=== PATIENT | female | born 1985 | race Caucasian/White ===

== ENCOUNTER 2021-06-13 08:48 | Emergency (ER) | payer OTHER ==
[~2021-06-13] VITALS: Ht 157.5 cm; Wt 65.9 kg
[2021-06-13] MEDS ORDERED: IBUPROFEN 600 MG TABLET. PO ONE (11:30)
--- NOTE | 2021-06-13 11:41 | PHYS DOC ---
General Adult EDM: Chief Complaint: LOWER EXT PAIN HPI: HPI: Patient is a 35-year-old female presents with right ankle pain. Patient states that she slipped and fell down her stairs this morning. Patient reports she is unable to bear weight and states that she has swelling to the outside of her ankle. Range of motion intact but produces pain. Denies taking anything for pain prior to arrival. Denies hitting her head or loss of consciousness. No other injuries noted. Only medical history seasonal allergies. (MICHELLE LAN APRN) Review of Systems: Review of Systems: ROS At least 10 ROS systems have been reviewed and are negative except as documented in the HPI. General: Negative except as outlined in HPI above. Skin: Negative except as outlined in HPI above. HEENT: Negative except as outlined in HPI above. Neck: Negative except as outlined in HPI above. Respiratory: Negative except as outlined in HPI above.. Cardiovascular: Negative except as outlined in HPI above. Abdomen: Negative except as outlined in HPI above. : Negative except as outlined in HPI above. Back/MSK: Negative except as outlined in HPI above. Neuro: Negative except as outlined in HPI above. Psych: Negative except as outlined in HPI above. (MICHELLE LAN APRN) Current Medications: Current Meds: Current Medications Medications (Trade) Dose Ordered Sig/Gigi Start Time Stop Time Status Last Admin Dose Admin Ibuprofen (Motrin) 600 mg 1X ONCE 06/13/21 11:30 06/13/21 11:31 UNV (MICHELLE LAN APRN) Physical Exam: PE: Constitutional: Well developed, well nourished, no acute distress, non-toxic appearance. [] HENT: Normocephalic, atraumatic, bilateral external ears normal, oropharynx moist, no oral exudates, nose normal. [] Eyes: PERRLA, EOMI, conjunctiva normal, no discharge. [] Neck: Normal range of motion, no tenderness, supple, no stridor. [] Cardiovascular:Heart rate regular rhythm, no murmur [] Lungs & Thorax: Bilateral breath sounds clear to auscultation [] Abdomen: Bowel sounds normal, soft, no tenderness, no masses, no pulsatile masses. [] Skin: Warm, dry, no erythema, no rash. [] Back: No tenderness, no CVA tenderness. [] Extremities: No tenderness, no cyanosis, no clubbing, ROM intact, no edema. Right ankleswelling to lateral side of right ankle, pain, unable to bear weight, pedal pulses intact, range of motion intact but produces pain Neurologic: Alert and oriented X 3, normal motor function, normal sensory function, no focal deficits noted. [] Psychologic: Affect normal, judgement normal, mood normal. [] (MICHELLE LAN APRN) EKG: EKG: [] (MICHELLE LAN APRN) Radiology/Procedures: Radiology/Procedures: []Site ID: [id number] EXAMINATION: XR EXAM OF ANKLE_RIGHT 3VIEWS. HISTORY: 35 years Female Reason: fall down stairs today COMPARISON: None. FINDINGS: No fracture, dislocation or radiopaque foreign body. The joint spaces and ar ticular surfaces appear unremarkable. IMPRESSION: Unremarkable exam. Electronically signed by: Aaron Ordonez MD (06/13/2021 11:55 AM) [id number] (MICHELLE LAN APRN) Heart Score: C/O Chest Pain: No Risk Factors: Risk Factors: DM, Current or recent (<one month) smoker, HTN, HLP, family history of CAD, obesity. Risk Scores: Score 0 - 3: 2.5% MACE over next 6 weeks - Discharge Home Score 4 - 6: 20.3% MACE over next 6 weeks - Admit for Clinical Observation Score 7 - 10: 72.7% MACE over next 6 weeks - Early Invasive Strategies (MICHELLE LAN APRN) Course & Med Decision Making: Course & Med Decision Making Pertinent Labs and Imaging studies reviewed. (See chart for details) [] 35-year-old female presents with right ankle pain and swelling to lateral aspect of foot. Pain treated in the emergency room with Motrin. X-ray of right ankle ordered. Right ankle x-ray is unremarkable. Oscar wrap and crutches given. Educated on RICE. Advised patient if pain does not improve in 5 to 7 days to follow-up with PCP for possible further imaging. Ibuprofen at home for discomfort. (MICHELLE LAN APRN) Course & Med Decision Making I was the ER physician during date of ER visit. HOTEL ROOM ATTENDANT independently saw and treated patient. Although I was in the department seeing other patients, no assistance was requested. Electronically signed, Nurys Mathis DO (NURYS MATHIS Disclaimer: Gee Disclaimer: This electronic medical record was generated, in whole or in part, using a voice recognition dictation system. (MICHELLE LAN APRN) Departure Departure: Impression: Primary Impression: Ankle sprain Qualified Codes: S93.401A - Sprain of unspecified ligament of right ankle, initial encounter Disposition: HOME / SELF CARE / HOMELESS Condition: STABLE Referrals: HARRIET ZABALA DO, MPH (PCP) Patient Instructions: Ankle Sprain, [id number], RICE - Routine Care for Injuries Additional Instructions: You are seen in the emergency room after a fall and right ankle pain. X-ray of your ankle was unremarkable. Ibuprofen for discomfort. If pain does not improve in 5 to 7 days please follow-up with your PCP for possible further imaging. Rest, use ice to the area, wear Oscar wrap, elevate. Return to the emergency room for worsening symptoms or concerns. EMERGENCY DEPARTMENT GENERAL DISCHARGE INSTRUCTIONS Thank you for coming to [facility] (ED) today and trusting us with you care. We trust that you had a positivie experience in our Emergency Department. If you wish to speak to the department management, you may call the director at [phone]. YOUR FOLLOW UP INSTRUCTIONS ARE FOLLOWS: 1. Do you have a private Doctor? If you do not have a private doctor, please ask for a resource list of physicians or clinics that may be able to assist you with follow up care. 2. The Emergency Physician has interpreted your x-rays. The X-Ray specialist will also review them. If there is a change in the findings, you will be notified in 48 hours when at all possible. 3. A lab test or culture has been done, your results will be reviewed and you will be notified if you need a change in treatment. ADDITIONAL INSTRUCTIONS AND INFORMATION: 1. Your care today has been supervised by a physician who is specially trained in emergency care. Many problems require more than one evaluation for a complete diagnosis and treatment. We recommend that you schedule your follow up appointment as recommended to ensure complete treatment of you illness or injury. If you are unable to obtain follow up care and continue to have a problem, or if your condition worsens, we recommend that you return to the ED. 2. We are not able to safely determine your condition over the phone nor are we able to give sound medical advice over the phone. For these safety reasons, if you call for medical advice we will ask you to come to the ED for further evaluation. 3. If you have any questions regarding these discharge instructions please call the ED at [phone]. SAFETY INFORMATION: In the interest of safety, wellness, and injury prevention; we encourage you to wear your sealbelt, if you smoke; quite smoking, and we encourage family to use a protective helmet for bicycling and other sporting events that present an increased risk for head injury. IF YOUR SYMPTOMS WORSEN OR NEW SYMPTOMS DEVELOP, OR YOU HAVE CONCERNS ABOUT YOUR CONDITION; OR IF YOUR CONDITION WORSENS WHILE YOU ARE WAITING FOR YOUR FOLLOW UP APPOINTMENT; EITHER CONTACT YOUR PRIMARY CARE DOCTOR, THE PHYSICIAN WHOSE NAME AND NUMBER YOU WERE GIVEN, OR RETURN TO THE ED IMMEDIATELY. MICHELLE LAN APRN Jun 13, 2021 11:41 NURYS MATHIS DO Jun 15, 2021 11:09
--- NOTE | 2021-06-13 11:58 | RAD ---
Site ID: [id number] EXAMINATION: XR EXAM OF ANKLE_RIGHT 3VIEWS. HISTORY: 35 years Female Reason: fall down stairs today COMPARISON: None. FINDINGS: No fracture, dislocation or radiopaque foreign body. The joint spaces and articular surfaces appea r unremarkable. IMPRESSION: Unremarkable exam. Electronically signed by: Aaron Ordonez MD (06/13/2021 11:55 AM) [id number]
[2021-06-13 12:27] VITALS: BP 132/92
== END 2021-06-13 12:27 | disposition home or self-care (01) ==
LOC: ER 08:48
DX: S93.401A Sprain of unspecified ligament of right ankle, initial encounter (principal); W01.0XXA Fall on same level from slipping, tripping and stumbling without subsequent striking against object, initial encounter; Y93.89 Activity, other specified; Y92.89 Other specified places as the place of occurrence of the external cause; Y99.8 Other external cause status
CPT/HCPCS: 73610; 99283